=== PATIENT | male | born 1930 | race Caucasian/White ===

== ENCOUNTER 2019-01-19 07:50 | Inpatient (IN) ==
--- NOTE | 2019-01-19 08:13 | EKG ---
[address] [address] Measurements Intervals Freedom Rate: 75 P: 86 WY: 165 QRS: -51 QRSD: 105 T: 73 QT: 399 QTc: 428 Interpretive Statements SINUS RHYTHM WITH OCCASIONAL VENTRICULAR PREMATURE COMPLEXES LEFT ANTERIOR FASCICULAR BLOCK Compared to ECG 02/27/2018 17:46:56 Ventricular premature complex(es) now present Left anterior fascicular block now present Atrial fibrillation no longer present Incomplete right bundle-branch block no longer present Myocardial infarct finding no longer present T-wave abnormality no longer present Possible ischemia no longer present Electronically Signed On 01-19-19 14:34:17 MDT by Ha Healy [id number]
[2019-01-19] MEDS ORDERED: Sodium Chloride 0.9% 1,000 ML PRIMARY IV ONE (08:32)
[2019-01-19 08:41] LABS: VENOUS PH 7.34 (7.32-7.42)
[2019-01-19 08:44] LABS: BASOPHILS # (AUTO) 0.04 10*3/UL; BASOPHILS % (AUTO) 0.4 % (0-1); Hematocrit [HCT] 48.4 % (42.0-52.0); Hemoglobin [HGB] 15.8 g/dL (14.0-18.0); LYMPHOCYTES # (AUTO) 2.88 10*3/uL; MEAN CORPUSCULAR HEMOGLOBIN 30.8 PG (27-31); MEAN CORPUSCULAR HGB CONC 32.6 g/dL (33-37); MEAN CORPUSCULAR VOLUME 94.3 FL (80-90); MEAN PLATELET VOLUME 10.6 FL (7.4-12.2); NEUTROPHILS # (AUTO) 5.87 10*3/UL; NEUTROPHILS % (AUTO) 58.4 % (50-80); RED BLOOD COUNT 5.13 10^6/uL (4.70-6.10)
[2019-01-19 08:47] LABS: PLATELET MORPHOLOGY COMMENT NORMAL MORPHOLOGY (NORM); RBC MORPHOLOGY COMMENT NORMAL MORPHOLOGY (NORM); WBC MORPHOLOGY COMMENT NORMAL MORPHOLOGY (NORM)
[2019-01-19 08:51] LABS: BLOOD UREA NITROGEN 16 mg/dL (7-22); BUN/CREATININE RATIO 17.77 (6-20); SERUM ALBUMIN 4.7 g/dL (3.5-4.8)
--- NOTE | 2019-01-19 09:31 | DI ---
MRI Brain WO Contrast,01/19/2019 8:36 AM: Clinical History: Left-sided stroke symptoms. Previous Exam: None at this facility. Findings: Multiplanar MR images are obtained through the brain without contrast, and demonstrate diffuse age-re lated volume loss. There is an area of abnormally restricted diffusion involving the right frontopari etal region. This involves a portion of the right insular cortex and the pre-and postcentral gyri on the right. There are scattered areas of increased FLAIR and T2 signal. There is also mild increased FLAIR signal in the area of restricted diffusion. The cerebellopontine angles are unremarkable. The internal auditory canals are unremarkable. Major vascular flow voids are unremarkable. There is some leftward deviation of the nasal septum. The intraorbital structures are unremarkable. Impression: 1. Area of restricted diffusion within the right right pre-and postcentral gyri. This also demonstrat es some mild increased FLAIR signal. This is consistent with an acute ischemic event.
--- NOTE | 2019-01-19 09:49 | PDOC ---
Neuro Symptoms / Deficit HPI - General Chief Complaint: Lower Extremity Problem/Injury Stated Complaint: LEFT LEG WEAKNESS Date Seen by Provider: 01/19/19 Time Seen by Provider: 08:10 Source: POSITIVE: Patient, Other (Dr. and [id number] and son) Exam Limitations: POSITIVE: No limitations Nurse's Notes Reviewed & Considered: Yes - History of Present Illness Initial Comments: The patient is an 88-year-old male who is brought to the emergency room by his daughter and gjzpcbby-yk-god. The daughter and fzbnicfj-sd-nci we'll wait patient into the emergency room in a wheelchair. 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 He states he fell onto the floor because his left leg was weak. His son was with him at the time and witnessed the event. Patient states he felt fine when he went to bed last night daughter reports that the patient normally ambulates well without any assistan ce. Patient denies any associated head, chest, abdominal, hip, or any other pain. Patient states he does not believe he hurt himself with his follow-up. Daughter and xsreccrv-sh-dzi report that when they helped him up and tried to encourage him to walk he had weakness to his left leg and would "drag his left leg". Patient has a history of atrial fibrillation for which he takes metoprolol. He also has a history of ofu-xpdonwf-fmayczqhn diabetes mellitus for which he takes metformin. Patient is quite hard of hearing. No GI or symptoms. Body Location Affected: REPORTS: Lower Extremity (L) Timing: REPORTS: Other (Left leg weakness present when he awoke from sleep this morning) Duration: Unknown Severity: Moderate Quality: REPORTS: Other (Patient denies any pain anywhere) Character of Deficit(s): REPORTS: LLE, New Weakness Associated Symptoms: DENIES: Fever, Chills, Sweating, Chest Pain, Neck Pain, Back Pain, Headache, Fainting, Seizure, Altered Mental Status, Disoriented, Confused, Agitated, Trouble Concentrating, Trouble Thinking, Decreased Responsiveness, Unresponsive, Other Usual Ability to Walk/Stand: REPORTS: Walks w/o Assistance Usual Cognition: REPORTS: Alert & Oriented x3. DENIES: Alert but Confused, Alert/Disoriented to Time, Poor Alertness, Other Similar Symptoms Previously: No Recently seen/treated/hospitalized: No Any Prior Injuries Related to Current Complaint?: No - Patient Home Medications Home Medications: Home Medications aspirin 81 mg chewable tablet 81 mg PO QDAY tab 04/08/18 potassium chloride ER 10 mEq tablet,extended release 20 meq PO QDAY tab 04/08/18 tamsulosin 0.4 mg capsule 0.4 mg PO QDAY #30 cap 05/02/18 metoprolol succinate ER 25 mg tablet,extended release 24 hr 12.5 mg PO QDAY #30 tab 05/06/18 metformin ER 500 mg tablet,extended release 24 hr 500 mg PO QPM #90 tab 10/22/18 Contour Next Test Strips See Dose Instructions .ROUTE .MEDSUPPLY #50 ea NS 10/27/18 pen needle, diabetic 32 gauge x 1/4" See Dose Instructions .ROUTE .MEDSUPPLY #50 ea 11/07/18 suvorexant 10 mg tablet 10 mg PO QHS PRN #30 tab 12/24/18 - Patient Allergies Allergies/Adverse Reactions: Allergies Allergy/AdvReac Type Severity Reaction Status Date / Time No Known Drug Allergies Allergy NOT Verified 12/03/18 09:31 APPLICABLE Past Medical History - heen HEENT History: Denies History Cardiovascular History: Hypertension, Arrhythmia, Hyperlipidemia, Other (please comment) Additional Cardiovasular History: AFIB Respiratory History: Denies History Gastrointestinal History: Denies History Genitourinary History: Denies History Endocrine History: Type 2 Diabetes (oral) Musculoskeletal History: Denies History Prosthesis or Implant: No Neurological History: Denies History Blood Disorders: Denies History Psychiatric History: Denies History Male Reproductive History: BPH Cancer History: Denies History In Past Year Been Physically Harmed or Verbally Threatened: No History of MDRO: No Tobacco Use: Former Smoker In the Past 12 Months, Have Used or Abuse Any Substance: None Previous Surgical History: No Significant Family History: No pertinent family hx Past Medical History Reviewed: Reviewed - No Changes ROS - Limitations ROS Limitations: No Limitations Constitution: REPORTS: Denies Symptoms Cardiovascular: REPORTS: Denies Cardiac Symptoms Respiratory: REPORTS: Denies Resp Symptoms Neurological: REPORTS: Weakness (Left leg) Gastrointestinal: REPORTS: Denies GI Symptoms Endocrine: REPORTS: Denies Symptoms Musculoskeletal: REPORTS: Denies MS Symptoms Genitourinary: REPORTS: Denies Symptoms Eyes: REPORTS: Denies Symptoms ENT: REPORTS: Denies Symptoms Skin: REPORTS: Denies Skin Symptoms Lympathic: REPORTS: Denies Lympathic Symptoms Immunologic: POSITIVE: Denies Symptoms Psychiatric: POSITIVE: Denies Psych Symptoms Neuro Symptoms / Deficit Exam - General Appearance General Appearance: POSITIVE: No Acute Distress, Alert - HEENT HEENT: POSITIVE: Head Inspection Nml, Eyes Inspection Nml, Ears Inspection Nml, Nose Inspection Nml, Oral/Dental Inspect. Nml, Pharynx Inspect. Nml, PERRL, EOMI - Pupil Size Pupil Size: 1 mm: Bilateral (Pupils miotic) - Neuro / Psych Higher Functions: POSITIVE: Oriented to Person, Oriented to Place, Oriented to Time, Normal Speech, Normal Cognition, Appropriate Mood, Appropriate Affect. NEGATIVE: Disoriented to Person, Disoriented to Place, Disoriented to Time, Speech Abnormalities, Cognition Abnormalities, Depressed Mood, Depressed Affect, Abnml Response to Command, No Response to Command, Eyes Open to Command, Slow Response to Command, Inapp Response to Command, Expressive Aphasia, Receptive Aphasia, Abnml Response to Pain, Withdraws to Pain, Flexor to Pain, Extensor to Pain, No Response to Pain, Dysarthria, Other Cranial Nerves: POSITIVE: Normal As Tested, No Evidence of Acute CVA Cerebellar: POSITIVE: Normal As Tested Peripheral Exam: POSITIVE: Weakness (Patient has pronator drift on the left. Hand grasp is diminished on the left. Patient unable to bear weight on his left leg. He has distal and proximal weakness of the left leg. Babinski upgoing on right and downgoing on the left), Hemiplegia, Pronator Drift LUE, Babinski Reflex (Right). NEGATIVE: Motor Normal, Reflexes Normal (Patellar reflexes one plus left and 2+ right) Reflexes: Patellar (R): 2+, Patellar (L): 1+ - Neck Neck: POSITIVE: Supple, Non-Tender, No Carotid Bruit - Respiratory Respiratory: POSITIVE: No Respiratory Distress, Breath Sounds Normal - Cardiovascular Cardiovascular: POSITIVE: Regular Rate & Rhythm, Heart Sounds Normal Peripheral Pulses: Radial (R): 2+, Radial (L): 2+, Dorsalis-pedis (R): 2+, Dorsalis-pedis (L): 2+ - Abdomen Abdomen: Soft: (All Quadrants), Normal Bowel Sounds: (All Quadrants), Denies Tenderness: (All Quadrants), No Splenomegaly: (All Quadrants), No Hepatomegaly: (All Quadrants), No Guarding: (All Quadrants), No Rebound: (All Quadrants), No Palpable Pulse: (All Quadrants), No Palpabale Mass: (All Quadrants), No Distention: (All Quadrants), No Rigidity: (All Quadrants) - Skin Skin: POSITIVE: Intact, Normal For Race, Warm, Dry, No Rash - Extremities Extremity: Non-Tender: (All Extremities), Normal ROM: (All Extremities), Normal Inspection: (All Extremities) Images - Complete Complete: 1 - Weakness 2 - Weakness Neuro Symptom/Deficit Progress - Results Reviewed by me Xrays/CTs/US Reviewed by me: Yes Discussed with Radiologist: Yes Radiology Findings: MRI brain without contrast shows "area of restricted perfusion right preeminent post central gyri compatible with acute ischemic infarct Lab Results Reviewed by Me: Yes CBC and BMP: 01/19/19 08:00 01/19/19 08:00 Lab Results:: Laboratory Results 01/19/19 01/19/19 01/19/19 08:00 08:00 08:00 WBC 10.04 RBC 5.13 Hgb 15.8 Hct 48.4 MCV 94.3 H MCH 30.8 MCHC 32.6 L RDW Std Deviation 47.2 RDW Coeff of Vanessa 14.1 Plt Count 233 MPV 10.6 Immature Gran % (Auto) 0.5 Neut % (Auto) 58.4 Lymph % (Auto) 28.7 Harding % (Auto) 9.0 Eos % (Auto) 3.0 Baso % (Auto) 0.4 Immature Gran # (Auto) 0.05 Neut # (Auto) 5.87 Lymph # (Auto) 2.88 Harding # (Auto) 0.90 H Eos # (Auto) 0.30 Baso # (Auto) 0.04 WBC Morphology Comment Normal morphology Plt Morphology Comment Normal morphology RBC Morph Comment Normal morphology PT INR APTT VBG pH VBG pCO2 VBG HCO3 VBG Base Excess Sodium 144 Potassium 4.3 Chloride 104 Carbon Dioxide 27 Anion Gap 13 BUN 16 Creatinine 0.9 BUN/Creatinine Ratio 17.77 Glucose 135 H Calculated Osmolality 300.0 H Calcium 9.5 Magnesium 1.9 Total Bilirubin 0.3 AST 39 ALT 35 Alkaline Phosphatase 177 H Total Creatine Kinase 61 C-Reactive Protein 0.6 Total Protein 8.3 H Albumin 4.7 Globulin 3.6 Albumin/Globulin Ratio 1.30 01/19/19 01/19/19 08:13 08:47 WBC RBC Hgb Hct MCV MCH MCHC RDW Std Deviation RDW Coeff of Vanessa Plt Count MPV Immature Gran % (Auto) Neut % (Auto) Lymph % (Auto) Harding % (Auto) Eos % (Auto) Baso % (Auto) Immature Gran # (Auto) Neut # (Auto) Lymph # (Auto) [place] # (Auto) Eos # (Auto) Baso # (Auto) WBC Morphology Comment Plt Morphology Comment RBC Morph Comment PT 11.7 INR 1.02 APTT 31.8 VBG pH 7.34 VBG pCO2 46 VBG HCO3 25 VBG Base Excess -1 Sodium Potassium Chloride Carbon Dioxide Anion Gap BUN Creatinine BUN/Creatinine Ratio Glucose Calculated Osmolality Calcium Magnesium Total Bilirubin AST ALT Alkaline Phosphatase Total Creatine Kinase C-Reactive Protein Total Protein Albumin Globulin Albumin/Globulin Ratio EKG Interpreted/Reviewed By Me:: Yes EKG Interpretation:: POSITIVE: Normal Sinus Rhythm, Normal Rate, Normal Intervals, Normal [place], Normal QRS, Normal ST/T, Other (Unifocal PVC times one) - Patient's Progress Pain Medication Addressed: POSITIVE: Not Applicable School/Work Release Addressed: POSITIVE: Not Applicable Re-Examine Time:: 09:30 Re-Examine Comment: Condition unchanged. Patient remains alert and oriented. No gross cranial nerves deficit. He does have weakness of the left upper and lower extremities, lower greater than upper. Vitals remain normal; blood pressu re at 06 22 is 131/76. Normal sinus rhythm. Hospitalist paged at [phone], answered at [phone]. Hospitalist requested I consult with neurologist in [place]. At this time the patient's pronator drift on the left is much improved and his left hand grasp is much stronger any has less weakness in his left leg. Case discussed with Dr. Carpenter, neurologist at [facility] and patient was examined by him telemetric way. Recommends admission to this facility and checking the patient's hemoglobin A1c and lipid panel. Recommended carotid ultrasound and echocardiogram and physical therapy. In view of the patient's history of atrial fibrillation he also recommended that Eliquis be considered. Status: POSITIVE: Improved, Re-Examined Antibiotics Given: No CVA/Syncope Quality Measure Initiative: POSITIVE: EKG, NIH Stroke Scale (Estimated to be around 3 on discharge). NEGATIVE: t-PA Considered - Consult Consult (If Yes, Name of Consulting MD & Time Called): Yes (Dr. Carpenter,, [facility], and Dr. Cat hospitalist) Consulting MD will see pt:: POSITIVE: [facility] Admit Counseled: POSITIVE: Patient, Family, RE: Lab Results, RE: Radiology Results, RE: DX, RE: Need for F/U Patient Care Time - Estimated PCT Patient Care Time (In Minutes): 60 Vital Signs - Recent Vital Signs Vital Signs: Vital Signs (Last 8 hours) Temp Pulse Pulse Resp BP BP Pulse Ox 01/19/19 09:42 70 139/73 92 01/19/19 09:41 69 139/73 93 01/19/19 09:00 69 90 01/19/19 08:58 66 91 01/19/19 08:56 69 89 01/19/19 08:54 69 90 01/19/19 08:52 69 91 01/19/19 08:50 71 92 01/19/19 08:48 69 131/78 92 01/19/19 08:46 71 90 01/19/19 08:44 70 91 01/19/19 08:42 68 91 01/19/19 08:40 70 92 01/19/19 08:38 71 93 01/19/19 08:36 69 92 01/19/19 08:35 69 92 01/19/19 08:32 137/88 01/19/19 08:30 74 94 01/19/19 08:22 74 22 95 01/19/19 08:20 77 14 87 01/19/19 08:18 77 22 164/97 94 01/19/19 08:16 76 13 93 01/19/19 08:14 75 15 94 01/19/19 08:12 78 17 95 01/19/19 08:10 76 42 H 93 01/19/19 08:08 76 17 94 01/19/19 08:06 97.5 F 75 82 15 153/98 146/123 94 01/19/19 08:04 22 01/19/19 08:02 79 22 93 04/29/19 08:00 83 17 92 01/19/19 07:59 84 151/95 93 Discharge Clinical Impression: Ischemic cerebrovascular accident (CVA) Discharge Disposition: Admit to Inpatient Condition: Good Follow Up With: MORTEZA DRIVER [Primary Care Provider] - Date Decision to Admit to Inpatient: 01/19/19 Time Decision to Admit to Inpatient: 10:30
[2019-01-19] MEDS ORDERED: ONDANSETRON 4 MG/2 ML VIAL IVP PRN (12:20)
[2019-01-19] MEDS ORDERED: LIDOCAINE W/ SODIUM BICARB 0.5 ML SYR SUBD PRN (12:20)
[2019-01-19] MEDS ORDERED: CALCIUM CARBONATE 500 MG (TUMS) CHEWABLE TABLET PO PRN (12:20)
[2019-01-19] MEDS ORDERED: DOCUSATE 100 MG CAPSULE PO PRN (12:20)
[2019-01-19] MEDS ORDERED: ACETAMINOPHEN 325 MG TABLET PO PRN (12:20)
--- NOTE | 2019-01-19 12:26 | PDOC ---
HPI - History of Present Illness History of Present Illness: This very nice 88-year-old gentleman who was brought to the ER by his son. This morning he got them and fell his son heard a was weak on the left side was bro ught to the ER. I recommended to the ER physician that he call stroke, health and talk to the neurologist. Positive CVA on MRI. Patient is not improved with his motor strength upper and lower extremity on the left side. Patient has a history of chronic A. fib and is only been on aspirin and neurology recommended eliquis, we will also include carotid ultrasound and echo patient is doing better discussed case with family members daughter and son Past Medical History Medical History: Chronic A. fib, BPH Surgical History: No prior surgeries Pertinent Family History: Mother had diabetes. Father in a car wreck. Past Social History: Does not smoke or drink. Lives alone. Still drives. Tobacco Use: Former Smoker In the Past 12 Months, Have Used or Abuse Any of the Following Substance: None Medication / Allergies Home Medications: Home Medications Medication Instructions Recorded Confirmed Type aspirin 81 mg chewable tablet 81 mg PO QDAY tab 04/08/18 01/19/19 History potassium chloride ER 10 mEq 20 meq PO QDAY tab 04/08/18 01/19/19 History tablet,extended release tamsulosin 0.4 mg capsule 0.4 mg PO QDAY #30 cap 05/02/18 01/19/19 Rx metoprolol succinate ER 25 mg 12.5 mg PO QDAY #30 tab 05/06/18 01/19/19 Rx tablet,extended release 24 hr metformin ER 500 mg 500 mg PO QPM #90 tab 10/22/18 01/19/19 Rx tablet,extended release 24 hr Contour Next Test Strips See Dose Instructions .ROUTE 10/27/18 12/03/18 Rx .MEDSUPPLY #50 ea NS pen needle, diabetic 32 gauge x See Dose Instructions .ROUTE 11/07/18 12/03/18 Rx 1/4" .MEDSUPPLY #50 ea suvorexant 10 mg tablet 10 mg PO QHS PRN #30 tab 12/24/18 01/19/19 Rx Allergies/Adverse Reactions: Allergies Allergy/AdvReac Type Severity Reaction Status Date / Time No Known Drug Allergies Allergy NOT Verified 01/19/19 10:29 APPLICABLE Review of Systems - Review of Systems All Systems: Reviewed & No Additional Complaints Except as Stated - Respiratory Respiratory: DENIES: Negative System Review, Cough, Sputum, Dyspnea At Rest, Dyspnea with Exertion, Pleuritic Pain, Hemoptysis, Wheezing, Other, See HPI - Cardiovascular Cardiovascular: DENIES: Negative System Review, Chest Pain, Edema, Syncope, Palpitations, Orthopnea, Paroxysmal Nocturnal Dyspnea, Other, See HPI - Gastrointestinal Gastrointestinal / Abdominal: DENIES: Negative System Review, Nausea, Vomiting, Diarrhea, Constipation, Abdominal Pain, Bloody Stool, Poor Appetite, Heartburn, Regurgitation, Bloating, Lactose Intolerance, Melena, Bright Red Blood per Rectum, Other, See HPI - Musculoskeletal Musculoskeletal: REPORTS: Other (Left-sided weakness now improved) Exam - Vitals Vital Signs: Vital Signs Temperature 97.5 F Temperature Source Oral Pulse Rate [Pulse Oximeter] 82 Pulse Rate 80 Respiratory Rate 22 Blood Pressure [Right Arm] 146/123 Blood Pressure 137/99 Pulse Ox 93 Oxygen Delivery Method Room Air Height 5 ft 8 in Weight 150 lb - General General Appearance: No Acute Distress, Cooperative - Eye Eye Exam: POSITIVE: Normal Appearance, PERRL, EOMI, No Scleral Icterus - Neck Neck Exam: Normal Inspection, Full ROM, No Tenderness, No Lymphadenopathy, No Thyromegaly, JVP is not Raised - Respiratory Respiratory Exam: POSITIVE: Clear to Auscultation - Bilaterally, Breathing Non Labored, Normal To Percussion, Normal to Percussion and Palpation - Cardiovascular Cardiovascular Exam: POSITIVE: RRR, No Murmur, No Clicks, No Gallops, No Rubs, PMI Non-Displaced - GI/Abdominal GI/Abdominal Exam: POSITIVE: Normal Bowel Sounds, Non Tender, Non Distended, Soft, No Masses, No Hepatomegaly, No Splenomegaly, No Organomegaly - Extremities Extremities Exam: POSITIVE: No Clubbing Present, No Edema Present Additional Extremities Exam Details: Strength now I would say 5 out of 5 upper and lower extremity I will wait for physical therapy to walk the patient Results - Labs CBC and BMP: 01/19/19 08:00 01/19/19 08:00 Assessment and Plan - Patient Problems (1) Ischemic cerebrovascular accident (CVA) Current Visit: Yes Status: Acute Comment: As recommended by Dr. Martinez neurology we will start L a course for chronic A. fib we will also order carotid ultrasound and echo which can be done on Saturday since we don't have an quality assurance lab technician we will start statin check lipids, consult PT and OT Code(s): I63.9 - Cerebral infarction, unspecified (2) Atrial fibrillation Current Visit: No Status: Acute Comment: On beta farida start Entocort coagulation monitor on telemetry Code(s): I48.91 - Unspecified atrial fibrillation Qualifiers: Atrial fibrillation type: paroxysmal Qualified Code(s): I48.0 - Paroxysmal atrial fibrillation
[2019-01-19] MEDS: Lactated Ringers 1,000 ML PRIMARY IV SCH ×2 (14:26→22:17)
[2019-01-19] MEDS ORDERED: Zolpidem Tab 5 MG TAB PO PRN (20:00)
[2019-01-19] MEDS: Apixaban Tab 2.5 MG TABLET PO SCH (20:15)
[2019-01-19] MEDS: TAMSULOSIN 0.4 MG CAPSULE PO SCH (20:15)
[2019-01-19] MEDS ORDERED: metFORMIN 500 MG TABLET PO SCH (21:00)
--- NOTE | 2019-01-19 22:49 | DI ---
US Carotids Bilateral,01/19/2019 12:20 PM: Clinical History: Cerebrovascular accident. Previous Exam: None at this facility. Findings: Multiple grayscale and color Doppler sonographic images are obtained of the carotid systems bilateral ly, and demonstrate dense calcified plaque within the carotid bulbs bilaterally. There is some plaque which extends up the right internal carotid artery as well. There is no detectable Doppler flow within the distal right internal carotid artery. Peak systolic velocities are as follows: RIGHT- Common carotid: 51 cm/s. Internal carotid artery: 125 cm/s. Flow within the vertebral arteries is antegrade. ICA to CCA ratio measures 2.5. LEFT- Flow within the left common carotid artery measures 49 cm/s. Peak systolic flow within the left internal carotid artery measures 53 cm/s. Flow within the vertebral arteries is antegrade. The ICA to CCA ratio measured 1.6. Impression: 1. Complete occlusion of the mid and distal internal carotid artery. Recommend CT angiogram of the ne ck for further evaluation.
[2019-01-20 05:43] LABS: BASOPHILS # (AUTO) 0.02 10*3/UL; BASOPHILS % (AUTO) 0.2 % (0-1); EOSINOPHILS % (AUTO) 2.9 % (0-8); Hematocrit [HCT] 43.7 % (42.0-52.0); Hemoglobin [HGB] 14.3 g/dL (14.0-18.0); LYMPHOCYTES # (AUTO) 2.36 10*3/uL; MEAN CORPUSCULAR HEMOGLOBIN 31.1 PG (27-31); MEAN CORPUSCULAR HGB CONC 32.7 g/dL (33-37); MEAN PLATELET VOLUME 10.2 FL (7.4-12.2); MONOCYTES # (AUTO) 0.96 10*3/UL (0.3-0.8); MONOCYTES % (AUTO) 9.2 % (5-15); NEUTROPHILS # (AUTO) 6.72 10*3/UL; NEUTROPHILS % (AUTO) 64.6 % (50-80)
[2019-01-20 05:45] LABS: PLATELET MORPHOLOGY COMMENT NORMAL MORPHOLOGY (NORM); RBC MORPHOLOGY COMMENT NORMAL MORPHOLOGY (NORM); WBC MORPHOLOGY COMMENT NORMAL MORPHOLOGY (NORM)
[2019-01-20 05:52] LABS: BLOOD UREA NITROGEN 12 mg/dL (7-22); BUN/CREATININE RATIO 17.14 (6-20); SERUM ALBUMIN 3.8 g/dL (3.5-4.8)
[2019-01-20] MEDS: Lactated Ringers 1,000 ML PRIMARY IV SCH ×2 (07:32→15:00)
[2019-01-20] MEDS ORDERED: Hold Metformin-See Instruction 1 EACH MIS PRN (08:30)
[2019-01-20] MEDS: ASPIRIN 81 MG (BABY) CHEWABLE TABLET PO SCH (08:35)
[2019-01-20] MEDS: POTASSIUM CHLORIDE 20 MEQ TAB PO SCH (08:35)
[2019-01-20] MEDS: METOPROLOL SUCCINATE 25 MG SR 24H TABLET PO SCH (08:35)
[2019-01-20] MEDS: Apixaban Tab 2.5 MG TABLET PO SCH ×2 (08:36→20:35)
--- NOTE | 2019-01-20 09:27 | PTI REPORT ---
Thank you for the referral of Aj Fernando. He was seen on 01/19/19 for an inpatient evaluation status post CVA. SUBJECTIVE: The patient is an 88-year-old male who was referred today by Dr. Cat secondary to a diagnosis of CVA with left sided weakness. The patient lives in senior apartments [place] and does have a daughter that checks on him frequently. PAST MEDICAL HISTORY: Past medical history can be found in the patient's medical record. OBJECTIVE FINDINGS: General observations: The patient demonstrates the ability to follow instructions well. He is pleasant and cooperative; however, he is impulsive. Due to his recent issues he has poor coordination and poor balance and needs to be watched very closely. His cognition is such where he is probably not going to ask for help and has very poor safety awareness. Range of motion: The patient demonstrates good range of motion of both shoulders. Strength: Strength was slightly less in the left upper extremity than the right. More affected was the coordination. He demonstrates fair trunk control. The patient demonstrated one muscle grade weaker in the dorsiflexors, knee extensors, and plantarflexors of the left lower extremity. All other strengths were equal to the right side. Transfers: The patient was able to transfer from stand to sit and sit to stand independently. Once again, he has a tendency to list or fall to the left upon standing or walking activities. He is unaware that he is doing this. Ambulation: The patient does use a walker with verbal encouragement, but probably will not be using one on his own due to his cognition. The patient was able to ambulate several hundred feet with use of a walker and verbal and physical cueing due to his poor balance. Balance: The patient has a Fernandez score of 18 because of all the tactile and verbal reinforcement needed to complete the Fernandez exam. He is a HIGH risk for falling and is very impulsive. ASSESSMENT: Problem List: Left sided weakness Lower extremity weakness Poor proprioception on the left side Poor coordination Patient is a HIGH risk for falling Decreased cognition Short-Term Goals: To be met by discharge from inpatient: Patient will be able to transfer from bed to stand independently. Patient will be able to ambulate 100 feet with least restrictive assistive device. Patient will demonstrate lower extremity strength of 4/5 or greater. Long-Term Goals: To be met following discharge from inpatient: Patient will return home, safe and independent with all ADLs and functional transfers. TREATMENT PLAN: Patient will be seen B.I.D during the week and one time per day over the weekend as an inpatient to address the above goals and objectives. INITIAL TREATMENT: Treatment today consisted of the initial evaluation activities only. VINCENT
--- NOTE | 2019-01-20 10:43 | DI ---
CT CTA Neck WWO Contrast,01/20/2019 8:31 AM: Clinical History: Cerebrovascular accident. Previous Exam: Ultrasound performed 01/19/19. Findings: Multiple helically acquired CT images are obtained through the neck following a CT angiogram protocol , and demonstrate occlusion of the left vertebral artery with reconstitution of the vertebral artery on the left distally by branches of the external carotid artery. The parapharyngeal fat is normal and symmetric. There is peripheral vascular calcifications of the aortic arch. The common carotid arteries demonstrate hard plaque within the carotid bulbs bilaterally. All there i s no occlusion of the internal carotid arteries. There is some market tortuosity of the proximal left internal carotid artery. The mastoid air cells are unremarkable. Visualized portions of the red devil of [place] are normal. The basilar artery is normal. There is no cervical lymphadenopathy. There is some scarring within the lung apices. Diffuse degenerative changes of the cervical spine are seen. Impression: 1. 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 2. Mild peripheral vascular disease within the carotid bulbs without hemodynamically significant sten osis of the internal carotid arteries. 3. Degenerative changes of the cervical spine.
--- NOTE | 2019-01-20 10:45 | OT.PROG ---
Progress Note Progress Note: S: Pt states that he is well and agrees to go to therapy gym for OT tx. O: Pt engaged in OT tx to address functional transfers, ambulation with safety, and LUE strengthening. Pt demonstrates poor safety awareness with sit to stand transfers using FWW and requires verbal cues to push up from bed. Pt also demonstrates continued left sided weakness and minimal to moderate left side neglect. He requires moderate assistance and max verbal cues to ambulate from hospital room to therapy gym safely. Pt struggles to keep FWW close and directly in front of himself. He tends to lean to the left side with decreased ability to rotate and use walker. Pt also engaged in thera-ex to include digitflex strengthening activity 2 sets of 10 on both hands; flex bar to increase strength in bilateral hand strength; thera-putty strengthening, and B elbow flexion exercise using 2lb weights. A: Pt lacks ability to follow two step verbal commands. Pt can follow one-step verbal commands 60% of time due to current cognitive status. P: Pt continue POC.
--- NOTE | 2019-01-20 11:39 | OTI REPORT ---
Thank you for the referral of Aj Fernando. He was seen on 01/19/19 for an occupational therapy inpatient evaluation secondary to a CVA. SUBJECTIVE: The patient is an 88-year-old male who is being seen secondary to having an ischemic CVA which has affected his left side. His daughter was present during the subjective part today. The patient varies in his history; he states one thing and then his daughter states another thing. He does live with his daughter in a ranch style home. Prior to admission the patient was able to perform simple activities such as dressing himself and bathing himself. His daughter does most of the cooking, helps with finances, and transports him around town. She say she does like to go to the [facility] almost every morning to have breakfast, but she does drive him there. She does report that he is impulsive and sometimes doesn't tell the entire truth. The patient reports he has fallen. Today he fell off of the edge of the bed when trying to get dressed. His son had to come and pick him up and then he was transported to the emergency room. PAST MEDICAL HISTORY: Past medical history can be found in the patient's medical record. OBJECTIVE FINDINGS: General observations: The patient was alert and oriented to his name and month. He didn't know where he was at today or what had happened to him. Bed mobility: The patient was able to come from supine to sit while sitting edge of bed. Activities of daily living: While sitting edge of bed we practiced lower extremity dressing. The patient required min assist for balance and demonstrated decreased coordination with the left hand compared to the right. He was able to don his right sock with min assist. On the left side he lost his balance while sitting edge of bed and leaned to the left. He needed assistance to get back to an upright position. Coordination is decreased on the left side as he had difficulty maneuvering the sock with the left hand compared with the right. He needed min assist for his left lower extremity. Range of motion: Upper extremity active range of motion is within normal limits for flexion. Abduction is a little more limited to 130 degrees on the left side. Elbow flexion/extension and wrist flexion/extension are all within normal limits. Strength: Strength for shoulder flexion on the left was 4/5, abduction was 3/5, elbow flexion/extension was 3+/5, wrist flexion/extension was 4/5. He was able to oppose digits 2-5 on the right side. On the left side he was only able to oppose digits 2-4 and had difficulty reaching the 5th one. Neurological: The patient was asked to close eyes and point fingers to nose. He was able to do so on the right. He was about 2" off of the nose on the left. Transfers: When completing functional transfers, the patient does tend to lean to the right and needs cues to stay upright. He demonstrates a lot of impulsivity. Cognition: Cognition is questionable, especially with independence and safety later on. ASSESSMENT: The patient is demonstrating some cognitive deficits and is very impulsive, which makes him a high safety risk upon returning home. He does tend to lean to the left while using a wheeled walker. When not using a walker, he had a very staggered gait and had difficulty coordinating. He is demonstrating left handed weakness and coordination difficulties. His perception and proprioception is mildly off on the left side in the upper extremities. The patient would benefit from further testing for his cognition, visual abilities, and a speed test for his fine motor abilities. The patient would benefit from skilled therapy to address overall strength, coordination, and to assess his ability for safety at home. As of today, the patient did not demonstrate enough safety to return home. He has balance issues and impulsivity issues which make him a HIGH fall risk. Short-Term Goals: To be met by discharge from inpatient: Patient will participate in MoCA or CPT testing to address his cognitive processing abilities. Patient will increase upper extremity strength on the left side to 5/5 in the shoulder, elbow, and wrist. Patient will participate in 9 hold peg test and only have a 5 second difference from the right to the left. Patient will complete all ADLs including sitting edge of bed and standing to dress lower and upper extremities with stand by assist. Long-Term Goals: To be met following discharge from inpatient: Patient will return home with 24-hour care from his daughter. TREATMENT PLAN: Patient will be seen B.I.D during the week and one time per day over the weekend as an inpatient to address the above goals and objectives. INITIAL TREATMENT: Treatment today consisted of the initial evaluation activities only. VINCENT
--- NOTE | 2019-01-20 11:53 | PDOC(PROG) ---
Interval History: Patient is doing a little better in regards to her strength. Objective : Data - Labs CBC and BMP: 01/20/19 05:00 01/20/19 05:00 Objective : Exam - General General Appearance: Cooperative - Respiratory Respiratory Exam: Clear to Auscultation - Bilaterally, Breathing Non Labored, Normal To Percussion, Normal to Percussion and Palpation - Cardiovascular Cardiovascular Exam: RRR, No Murmur, No Clicks, No Gallops, No Rubs, PMI Non- Displaced - GI/Abdominal GI/Abdominal Exam: Normal Bowel Sounds, Non Tender, Non Distended, Soft, No Masses, No Hepatomegaly, No Splenomegaly, No Organomegaly - Extremities Additional Extremities Exam Details: Regained most of his strength on the left upper or lower 70 still very imbalanced Assessment and Plan - Patient Problems (1) Ischemic cerebrovascular accident (CVA) Current Visit: Yes Status: Acute Comment: Continueeliquis and aspirin will start statin today. CT [place] of the neck revealed the vertebral occlusion but with collaterals internal carotid not blocked nevertheless family and patient are not interested in any kind of surgery or even seen anyone to get an opinion if he would need it are not they have agreed to continue doing physical therapy considering when I discussed this with physical therapist he is very unbalanced and family is unable to take care of him at home with high fall risk and will like him to get stronger I will put in the swing bed eval order Code(s): I63.9 - Cerebral infarction, unspecified (2) Atrial fibrillation Current Visit: No Status: Acute Comment: Controlled with anticoagulation and beta farida Code(s): I48.91 - Unspecified atrial fibrillation Qualifiers: Atrial fibrillation type: paroxysmal Qualified Code(s): I48.0 - Paroxysmal atrial fibrillation
--- NOTE | 2019-01-20 11:57 | OT AM DAY ---
Diagnosis : CVA AM - Occupational Therapy S: The patient reports no new changes. O: The patient was brought down to the therapy department by OT. We worked on some lower extremity strengthening for the left lower extremity. We worked on some balance and transfer activities from sit to stand and initiation of movement. A: The patient needs constant verbal and physical cueing. He is an extremely high risk for falling due to his balance and impulsivity. He also appears to have a left sided visual defect and can't see things he is running into or beyond his right side to get his attention. Again, he remains a very HIGH risk for falling at this point in time. P: Continue seeing patient BID during the week and one time per day over the weekend for transfers, ambulation, and range of motion/strengthening exercises. VINCENT
--- NOTE | 2019-01-20 16:19 | OT.PROG ---
Progress Note Progress Note: S: Pt states that he does not want to go to therapy and that he "just wants to rest." O: Upon agreeing to stand, pt was seen in hospital room to work on transfer training and functional ambulation. Pt demonstrates poor safety awareness and poor recognition of deficits. Pt required moderate assistance to transfer from sit to stand using FWW for placement of hands and self as well as safety. Pt demonstrates impulsive behavior as he attempts to ambulate using FWW. Required moderate assistance and max verbal cues for safety awareness, orientation, and placement of FWW in relation to self. A: Pt was impulsive secondary to a personal visit in hospital room. He was anxious to return to hospital room. Pt would benefit from continued OT tx to address left side weakness/neglect, safety awareness, and functional ambulation. P: Pt to continue with POC.
[2019-01-20] MEDS: TAMSULOSIN 0.4 MG CAPSULE PO SCH (20:35)
[2019-01-20] MEDS ORDERED: SUVOREXANT 10 MG PO PRN (21:00)
[2019-01-20] MEDS ORDERED: ATORVASTATIN 20 MG TABLET PO SCH (21:00)
[2019-01-21] MEDS: ASPIRIN 81 MG (BABY) CHEWABLE TABLET PO SCH (08:26)
[2019-01-21] MEDS: POTASSIUM CHLORIDE 20 MEQ TAB PO SCH (08:26)
[2019-01-21] MEDS: METOPROLOL SUCCINATE 25 MG SR 24H TABLET PO SCH (08:26)
[2019-01-21] MEDS: Apixaban Tab 2.5 MG TABLET PO SCH (08:26)
--- NOTE | 2019-01-21 10:17 | DCSUMMARY ---
Hospitalization Summary Hospital Course: Final Discharge Diagnosis: Current Visit Problems Problem Status Onset Code Ischemic cerebrovascular accident (CVA) Acute I63.9 Atrial fibrillation chronic Diagnostic Data, Laboratory Data, and Procedures of Signifigance: CBC and BMP 01/20/19 05:00 01/20/19 05:00 History and Physical pertinent to Admission: Past Medical History Medical History: Chronic A. fib, BPH Surgical History: No prior surgeries Pertinent Family History: Mother had diabetes. Father in a car wreck. Past Social History: Does not smoke or drink. Lives alone. Still drives. Tobacco Use: Former Smoker Course of Hospitalization: This very nice 88-year-old gentleman was brought to the ER after sustaining a fall in the ER MRI was done which revealed the CVA patient has also a history of chronic A. fib the ER physician talked with Dr. Martinez neurology in [place] which recommended the patient be started on anticoagulation plus aspirin. Patient regained the good part of his strength on the left side upper and lower extremity upper more than lower. He is a very high fall risk and very unbalanced. Occupational health and physical therapy recommended 24-hour care I also recommended the same I recommended patient go to swing bed for further stress strengthening. The daughter has said that he will she wants to take his that home and she would take care of him despite about our recommendations. Should they will have a home eval today and Frida occupational therapist will go there to see if she can help in any way she will continue outpatient physical therapy and follow-up with his primary care physician. CTA of the neck was done which revealed some partial occlusion of the vertebral arteries with collaterals but not hemodynamically occlusion of the internal carotid like a shown on ultrasound I related this to the family the patient and the daughter they both stated the beta want any follow-up or surgical intervention for this matter. Again patient and and daughter are aware that with his high fall risk and not the continuous care patient could sustain a fall and potentially have a fracture or could hit his head which could potentially result in permanent damage or even . They are aware of this On the date of discharge, the patient was examined: Gen.: No acute distress, alert, nontoxic Heart: Regular rate and rhythm, no murmurs, clicks, gallops, or rubs Lungs: Clear to auscultation bilaterally, breathing is nonlabored Abdomen/GI: Normal tones on auscultation, soft, nontender, nondistended Musculoskeletal/extremities: No clubbing, cyanosis, or edema some weakness on the left side more in the lower extremities and upper Vitals reviewed and are listed below Vital Signs (24 hrs) 01/20/19 11:00 01/20/19 11:16 01/20/19 15:00 Temperature 99.6 F Pulse Rate 79 68 Pulse Rate Apical Pulse Rate Pulse Oximeter 76 Respiratory Rate 16 Blood Pressure Right Arm 167/78 Pulse Ox 96 01/20/19 16:25 01/20/19 19:00 01/20/19 21:00 Temperature 98.4 F 97.6 F Pulse Rate 66 Pulse Rate Apical 70 70 Pulse Rate Pulse Oximeter 75 Respiratory Rate 28 H 17 17 Blood Pressure Right Arm 170/78 146/68 Pulse Ox 93 97 01/20/19 23:00 01/21/19 03:00 01/21/19 05:00 Temperature 97.1 F Pulse Rate 93 72 Pulse Rate Apical Pulse Rate Pulse Oximeter Respiratory Rate Blood Pressure Right Arm Pulse Ox 01/21/19 06:58 Temperature 98.5 F Pulse Rate Pulse Rate Apical Pulse Rate Pulse Oximeter 76 Respiratory Rate 12 Blood Pressure Right Arm 126/71 Pulse Ox 92 Assessment and Plan: 1. As per discharge assessments above 2. Disposition: Home with daughter 3. Condition on discharge, stable and improved. 4. Diet: regular diet 5. Activities: resume normal activities 6. Follow-Up: 1. PCP 2. 7. Medications at the Time of Discharge: Home Medications Medication Instructions Recorded Confirmed aspirin 81 mg chewable tablet 81 mg PO QDAY tab 04/08/18 01/19/19 potassium chloride ER 10 mEq 20 meq PO QDAY tab 04/08/18 01/19/19 tablet,extended release tamsulosin 0.4 mg capsule 0.4 mg PO QDAY #30 cap 05/02/18 01/19/19 metoprolol succinate ER 25 mg 12.5 mg PO QDAY #30 tab 05/06/18 01/19/19 tablet,extended release 24 hr metformin ER 500 mg 500 mg PO QPM #90 tab 10/22/18 01/19/19 tablet,extended release 24 hr Contour Next Test Strips See Dose Instructions .ROUTE 10/27/18 12/03/18 .MEDSUPPLY #50 ea NS suvorexant 10 mg tablet 10 mg PO QHS PRN #30 tab 12/24/18 01/19/19 Apixaban [Eliquis] 2.5 mg PO BID #60 tab 01/21/19 Atorvastatin Calcium [Lipitor] 20 mg PO BEDTIME #30 tab 01/21/19 8. Time, care, counseling and coordination of care for this discharge is greater than 30 minutes. Exam - Vitals Vital Signs: Vital Signs Temperature 98.5 F Temperature Source Temporal Artery Scan Pulse Rate [Apical] 70 Pulse Rate [Pulse Oximeter] 76 Pulse Rate 72 Respiratory Rate 12 Blood Pressure [Right Arm] 126/71 Blood Pressure 137/104 Pulse Ox 92 Oxygen Flow Rate 95 Oxygen Delivery Method Room Air Height 5 ft 8 in Weight 155 lb 12.8 oz Patient Problems - Patient Problem List (1) Ischemic cerebrovascular accident (CVA) Current Visit: Yes Status: Acute Code(s): I63.9 - Cerebral infarction, unspecified Category: Medical (2) Atrial fibrillation Current Visit: No Status: Acute Code(s): I48.91 - Unspecified atrial fibrillation Qualifiers: Atrial fibrillation type: paroxysmal Qualified Code(s): I48.0 - Paroxysmal atrial fibrillation Category: Medical
--- NOTE | 2019-01-21 12:10 | PT.PROG ---
Progress Note Progress Note: S. Patient agreed to go to the therapy gym this morning. O. Patient ambulated 175 feet to the therapy gym where he performed sit to stands x 5, standing marches x 10. long arc quads, marches, heel toe raises all x10 bilaterally. Patient then ambulated 175 feet back to his room where he was left in bed with alarm and call light. A. Patient tolerated therapy poor, he requires frequent verbal cues to complete all exercises and for safety during ambulation. He has left side weakness and balance deficits, he tends to veer to the left and is unaware of his surroundings to the left. Patient would continue to benefit from skilled therapy and 24 hour care would be recommended. P. Continue POC.
[2019-01-21 13:27] VITALS: BP 146/76; RESP 20; TEMP 97.5; O2SAT 93
--- NOTE | 2019-01-22 12:17 | OT AM DAY ---
Diagnosis : CVA AM - Occupational Therapy S: Pt states that he is ready to get up and go to therapy. O: Pt participated in OT tx to address functional transfers, UE strength, and visual and cognitive assessments. Pt tolerated bilateral elbow flexion/extension using red theraband 2 sets of 10 reps, 2 sets of 10 bilateral rows, and flex bar exercises to increase UE strength needed for functional transfers. Pt required minimal assistance and verbal cues to use (walker) safely during sit to stand transfers. Pt also participated in the mini mental state examination. Scored 16/30 which puts him at moderate cognitive impairment. Informal Visual assessments led to approx. only 10 degrees of visual function to the left when looking straight. Pt required multiple verbal cues and max. physical assist to attend to left hand and to use L employee communications manager strength to pinch pins. A: During cognitive assessment, pt demonstrated a moderate cognitive deficit and demonstrated decreased ability to recall short-term memory, decreased orientation, and following written directions. Pt also demonstrated left side visual deficit in his decreased ability to follow visual pursuits of left side. Pt demonstrates 10 degree visual ability of left eye. Line bisection test showed partial neglect of left side. Pt would benefit from continued OT services to address L visual deficit, decreased cognitive abilities, and LUE strength. P: Continue seeing patient BID during the week and one time per day over the weekend for upper extremity strengthening, ADLs, and overall functional mobility. Note done by: Criss Mao OTS Supervised by: MODESTA Ahmadi/Jv KAUR
--- NOTE | 2019-01-22 12:38 | OT PM DAY ---
Diagnosis : CVA PM - Occupational Therapy (Home Evaluation) S: The patient's family reports they are willing to take him home. We did have a discussion this morning and they are very aware that they will have to provide contact guard assist with the gait belt when he is up at all times, as he does demonstrate impulsivity and left visual neglect which ends up being left physical neglect. He is running into doors and has difficulty following directions at all times. O: The patient transferred into the car outside of the hospital. He required max verbal cues to get into the car safely. He had a little bit of balance difficulties, but overall did well getting into the car. Once in the car, they drove the patient to his home. We had the patient get out of the car. He was able to go up the ramp but needed max verbal cues and physical assistance in order to go up the ramp in the center. He continually veered off to the left and needed cues to get to the ramp. He then was able to walk up the ramp with min assist. Once inside the home we first went into the bathroom. Bathroom: The patient had a lower toilet with handles. He had a little bit of difficulty getting from sit to stand. We did issue him a high rise toilet seat with handles and he was able to push up off of this much safer. The bathroom is smaller, so getting the wheeled walker in there was a little bit difficult. It is recommended that he use the four wheeled walker to go to the toilet. If he is going to take a shower for the day, the wheeled walker is in the way. He will need hand hold assist to turn around. The patient was issued a shower chair with a back. Because of his balance difficulties and neglect to the left, the chair with a back will be much safer when he is in the shower. They already have a shower hose. It was recommended a grab bar be placed in the shower on the right side on the upper part when he stands as there are no grab bars in the shower at this time. The patient transferred out of the shower chair with min assist. We then had the patient walk to the kitchen. Kitchen: The patient sat in his chair. The patient did need min assist and max verbal cues to get there and find the chair. He then went into the living room. Living room: The patient transferred into his recliner chair. There are bars on each side of the chair. The patient was able to come from sit to stand with min assist. He was then able to ambulate to his bedroom. Bedroom: The patient does demonstrate some left sided weakness when getting into bed, but was able to take off his shoes with stand by assist. He does tend to lean to the left before laying down in bed. A: The patient demonstrates high impulsivity and left neglect as he does run into doorways and door frames. It was highly encouraged that the family hang onto the patient using the gait belt every single time he is up and ambulating. They did agree with this and understood this. His daughter has ordered a bed alarm which should be arriving tomorrow. He was issued a high rise toilet seat and a shower chair with a back to increase his safety and the family's safety when performing functional transfers. It is recommended a grab bar be installed in the shower. There is also a large throw rug underneath the kitchen table. It was recommended this be removed as the patient may trip on the rug. Other than that, the house was clear of throw rugs. Pathways were cleared. Overall the family is willing to take care of Aj at home. They understand all precautions. P: Continue seeing patient BID during the week and one time per day over the weekend until discharge. AMINAD
[2019-01-22] MEDS ORDERED: metFORMIN ER 500 MG TABLET PO SCH (21:00)
== END 2019-01-21 14:45 | disposition home or self-care (01) | DRG 66 ==
LOC: ER 07:50 → MED/SURG 12:13
PROVIDERS: ADMIT Internal Medicine; ATTEND Internal Medicine

== ENCOUNTER 2019-07-18 09:45 | Observation (INO) ==
[2019-07-18] MEDS ORDERED: Sodium Chloride 0.9% 1,000 ML PRIMARY IV ONE (10:08)
[2019-07-18 10:17] LABS: BASOPHILS # (AUTO) 0.03 10*3/UL; BASOPHILS % (AUTO) 0.2 % (0-1); EOSINOPHILS # (AUTO) 0.25 10*3/UL; Hemoglobin [HGB] 15.2 g/dL (14.0-18.0); LYMPHOCYTES # (AUTO) 2.44 10*3/uL; MEAN CORPUSCULAR HGB CONC 31.7 g/dL (33-37); MEAN CORPUSCULAR VOLUME 95.6 FL (80-90); MEAN PLATELET VOLUME 10.4 FL (7.4-12.2); MONOCYTES # (AUTO) 1.04 10*3/UL (0.3-0.8); MONOCYTES % (AUTO) 8.5 % (5-15); NEUTROPHILS # (AUTO) 8.36 10*3/UL; NEUTROPHILS % (AUTO) 68.6 % (50-80); RED BLOOD COUNT 5.02 10^6/uL (4.70-6.10)
[2019-07-18 10:20] LABS: PLATELET MORPHOLOGY COMMENT NORMAL MORPHOLOGY (NORM); RBC MORPHOLOGY COMMENT NORMAL MORPHOLOGY (NORM); WBC MORPHOLOGY COMMENT NORMAL MORPHOLOGY (NORM)
[2019-07-18 10:23] LABS: BLOOD UREA NITROGEN 14 mg/dL (7-22); BUN/CREATININE RATIO 15.55 (6-20); SERUM ALBUMIN 4.7 g/dL (3.5-4.8)
[2019-07-18] MEDS ORDERED: LIDOCAINE W/ SODIUM BICARB 0.5 ML SYR SUBD PRN (12:08)
[2019-07-18] MEDS ORDERED: Sodium Chloride 0.9% 1,000 ML PRIMARY IV SCH (12:08)
[2019-07-18] MEDS: METOPROLOL SUCCINATE 25 MG SR 24H TABLET PO SCH (14:07)
[2019-07-18] MEDS: Apixaban Tab 2.5 MG TABLET PO SCH ×2 (14:07→20:03)
[2019-07-18] MEDS: Multivitamin Tab 1 TAB PO SCH (14:07)
[2019-07-18] MEDS: Potassium Chloride Tab 10 MEQ TAB PO SCH (14:08)
[2019-07-18] MEDS: TAMSULOSIN 0.4 MG CAPSULE PO SCH (14:08)
[2019-07-18] MEDS: LORATADINE 10 MG TABLET PO SCH (14:08)
[2019-07-18] MEDS: ASPIRIN 81 MG (BABY) CHEWABLE TABLET PO SCH (14:21)
[2019-07-18] MEDS ORDERED: metFORMIN 500 MG TABLET PO SCH (17:00)
[2019-07-18] MEDS: ATORVASTATIN 20 MG TABLET PO SCH ×2 (20:03→20:07)
[2019-07-19 05:37] LABS: CHOL/HDL RATIO 5.06 RATIO (0-4.0)
[2019-07-19 07:31] VITALS: O2SAT 93
[2019-07-19 07:32] VITALS: BP 155/91; RESP 20; TEMP 98.1
[2019-07-19] MEDS ORDERED: LORATADINE 10 MG TABLET PO SCH (09:00)
[2019-07-19] MEDS ORDERED: METOPROLOL SUCCINATE 25 MG SR 24H TABLET PO SCH (09:00)
[2019-07-19] MEDS ORDERED: Multivitamin Tab 1 TAB PO SCH (09:00)
[2019-07-19] MEDS: TAMSULOSIN 0.4 MG CAPSULE PO SCH (09:02)
[2019-07-19] MEDS: Apixaban Tab 2.5 MG TABLET PO SCH (09:03)
[2019-07-19] MEDS: Multivitamin Tab 1 TAB PO SCH (09:03)
[2019-07-19] MEDS: Potassium Chloride Tab 10 MEQ TAB PO SCH (09:03)
[2019-07-19] MEDS: LORATADINE 10 MG TABLET PO SCH (09:04)
[2019-07-19] MEDS: ASPIRIN 81 MG (BABY) CHEWABLE TABLET PO SCH (09:04)
[2019-07-19] MEDS: METOPROLOL SUCCINATE 25 MG SR 24H TABLET PO SCH (09:05)
== END 2019-07-19 12:42 | disposition home or self-care (01) ==
LOC: MED/SURG 09:45 → ER 09:45 → MED/SURG 11:51
PROVIDERS: ADMIT Internal Medicine; ATTEND Internal Medicine